=== PATIENT | female | born 1995 | race Caucasian/White ===

== ENCOUNTER → 2017-05-06 | Outpatient (CLI) | payer BC ==
[~2017-05-06] MED LIST: DESOTAB2 PO; DICL-201 PO; MECL1TAB42 PO
[2017-05-09 06:59] LABS: CHLAMYDIA TRACH RNA*** DETECTED (NOT DETECTED); GC (NEIS GONORRHOEAE)RNA** NOT DETECTED (NOT DETECTED)
== END | disposition home or self-care (01) ==
LOC: C.LABSPEC 12:15
PROVIDERS: ATTEND Obstetrics & Gynecology
DX: N89.8 Other specified noninflammatory disorders of vagina (principal)

== ENCOUNTER → 2017-05-17 | Outpatient (CLI) | payer BC | END | disposition home or self-care (01) | LOC: C.LABSPEC 11:07 | PROVIDERS: ATTEND Physician Assistant | DX: L29.8 Other pruritus (principal) ==

== ENCOUNTER → 2017-08-19 | Outpatient (CLI) | payer BC ==
[2017-08-23 08:20] LABS: CHLAMYDIA TRACH RNA*** NOT DETECTED (NOT DETECTED); GC (NEIS GONORRHOEAE)RNA** NOT DETECTED (NOT DETECTED)
== END | disposition home or self-care (01) ==
LOC: C.LABSPEC 17:22
PROVIDERS: ATTEND Physician Assistant
DX: A74.9 Chlamydial infection, unspecified (principal)

== ENCOUNTER → 2017-12-16 | Outpatient (CLI) | payer BC | END | disposition home or self-care (01) | LOC: C.LABPVFM 09:20 | PROVIDERS: ATTEND Nurse Practitioner Family | DX: R53.83 Other fatigue (principal) ==

== ENCOUNTER → 2018-05-24 | Outpatient (CLI) | payer BC ==
[~2018-05-24] MED LIST changes: +DESO1TAB38 PO; -DESOTAB2 PO
[2018-05-24 17:15] LABS: BASO % 0.3 %; BASO ABS # 0.02 K/uL (0-0.2); EOS % 0.7 %; EOS ABS # 0.05 K/uL (0-0.5); HEMATOCRIT 37.5 % (37-47); HEMOGLOBIN 12.9 g/dL (12.0-16.0); IG# 0.02 K/uL (0.00-0.02); LYMPH % 26.2 %; LYMPH ABS # 1.77 K/uL (1.2-3.4); MEAN CELL VOLUME 81.7 fL (80-100); MEAN CORPUSCULAR HEMOGLOBIN 28.1 pg (25-34); MEAN CORPUSCULAR HGB CONC 34.4 g/dl (32-36); MEAN PLATELET VOLUME 11.2 fL (7.4-10.4); MONO % 5.9 %; NEUT % 66.6 %; PLATELET COUNT 286 K/uL (130-400); RED CELL DISTRIBUTION WIDTH CV 13.1 % (11.5-14.5); RED CELL DISTRIBUTION WIDTH SD 39.1 fL (36.4-46.3); WHITE BLOOD COUNT 6.76 K/uL (4.8-10.8)
[2018-05-24 17:41] LABS: BLOOD UREA NITROGEN 8 mg/dl (7-18); CALCIUM 9.2 mg/dl (8.5-10.1); CARBON DIOXIDE 23 mmol/L (21-32); GLUCOSE 86 mg/dl (70-99); POTASSIUM 3.8 mmol/L (3.5-5.1); SODIUM 136 mmol/L (136-145)
== END | disposition home or self-care (01) ==
LOC: C.LABPVFM 15:06
PROVIDERS: ATTEND Nurse Practitioner Family
DX: R11.0 Nausea (principal); R51 Headache; Z78.9 Other specified health status